=== PATIENT | male | born 1970 | race Caucasian/White ===

== ENCOUNTER 2019-05-15 13:56 | Emergency (ER) | payer OTHER ==
[~2019-05-15] VITALS: Ht 154.9 cm; Wt 83.9 kg
[2019-05-15 14:05] VITALS: BP_SYST 137
--- NOTE | 2019-05-15 14:09 | NUR ---
Patient is awake, alert, and oriented x4. Patient is complaining of upper right tooth pain since last night. Patient presents with tooth pain 8/10, denies nausea, vomiting.
--- NOTE | 2019-05-15 14:09 | NUR ---
Patient to ER bed 4 to gown for evaluation. Side rails up. Report given to Aly LINCOLN.
--- NOTE | 2019-05-15 14:10 | NUR ---
ER Dr. Carbone at bedside examining patient.
[2019-05-15 14:25] VITALS: BP_SYST 129
== END 2019-05-15 14:25 | disposition home or self-care (01) ==
LOC: SED 13:56 → EDBD 13:56 → SED 14:25
DX: K02.9 Dental caries, unspecified (principal); K08.89 Other specified disorders of teeth and supporting structures; R03.0 Elevated blood-pressure reading, without diagnosis of hypertension
CPT/HCPCS: 99283